=== PATIENT | female | born 1970 | race American Indian/Alaskan Native ===

== ENCOUNTER 2025-05-11 22:26 | Emergency (ER) | payer OTHER ==
[~2025-05-11] VITALS: Ht 177.8 cm; Wt 90.7 kg
[2025-05-11 22:31] VITALS: BP 127/75; O2SAT 99
[2025-05-12] MEDS ORDERED: ORPHENADRINE CITRATE 30 MG/ML AMPUL IM STA (01:47)
[2025-05-12] MEDS ORDERED: DOLOGESIC-DF 51 EACH PO (01:53)
[2025-05-12] MEDS ORDERED: ORPHENADRINE CITRATE 30 MG/ML AMPUL ONE (01:53)
== END 2025-05-12 02:03 | disposition home or self-care (01) ==
LOC: ER 22:26
DX: S40.011A Contusion of right shoulder, initial encounter (principal); S00.83XA Contusion of other part of head, initial encounter; S80.01XA Contusion of right knee, initial encounter; W18.39XA Other fall on same level, initial encounter; Y93.89 Activity, other specified; Y92.59 Other trade areas as the place of occurrence of the external cause; Y99.9 Unspecified external cause status; Z88.6 Allergy status to analgesic agent; Z85.89 Personal history of malignant neoplasm of other organs and systems